=== PATIENT | female | born 1990 | race American Indian/Alaskan Native ===

== ENCOUNTER 2022-03-11 07:09 | Outpatient (CLI) | payer OTHER ==
[2022-03-11 07:41] VITALS: BP 121/77
[2022-03-11] MEDS ORDERED: LACTATED RINGERS 1,000 ML IV ONE (08:43)
--- NOTE | 2022-03-11 09:41 | Ultrasound Report ---
ULTRASOUND OBSTETRIC INDICATION / CLINICAL INFORMATION: Gest Age, placenta integrity w/ vag bleed 35.5wk. - Clinical Gestational Age (GA) in weeks, days: 35, 5 TECHNIQUE: Transabdominal. COMPARISON: None available. FINDINGS: Single intrauterine . Biparietal Diameter = 8.5 cm = 34, 2 weeks, days Head Circumference = 31.8 cm = 35, 6 weeks, days Abdominal Circumference = 30.1 cm = 34, 1 weeks, days Femur Length = 7.0 cm = 35, 5 weeks, days Average Ultrasound Age (AUA) = 35, 0 weeks, days Heart Rate: 141 beats per minute. Estimated Weight in grams (if calculated): 2511 Estimated Weight Growth Percentile (if calculated): 25% Position: cephalic. Cervix: closed. Length in cm (if measured): Not measured Placenta: anterior and free of the os. Amniotic Fluid Volume: normal Amniotic Fluid Index (BERNARD) in cm (if calculated): 7.8 cm. Maternal Adnexa: No significant abnormality. BREATHING MOVEMENT = 2 GROSS BODY MOVEMENT = 2 TONE = 2 QUALITATIVE AMNIOTIC FLUID VOLUME = 2 TOTAL BIOPHYSICAL SCORE = 8/8 IMPRESSION: 1. Single, living intrauterine with estimated sonographic age of 35, 0 weeks, days. 2. No acute sonographic abnormality. 3. Total biophysical score is 8/8. Signer Name: Arun Wang MD Signed: 03/11/2022 9:37 AM Workstation Name: [id number]
[2022-03-11 10:15] LABS: Basophils % (Auto) 0.2 % (0.0-1.8); Eosinophils % (Auto) 0.3 % (0.0-4.3); Hemoglobin 9.6 gm/dl (10.1-14.3); Lymphocytes # (Auto) 1.8 K/mm3 (1.2-5.4); Lymphocytes % (Auto) 16.6 % (13.4-35.0); Mean Corpuscular HGB Conc 32 % (30-34); Mean Corpuscular Volume 87 fl (79-97); Monocytes # (Auto) 0.5 K/mm3 (0.0-0.8); Platelet Count 216 K/mm3 (140-440); Red Blood Count 3.43 M/mm3 (3.65-5.03); Red Cell Distribution Width 16.1 % (13.2-15.2)
== END 2022-03-11 11:15 | disposition home or self-care (01) ==
LOC: APU 07:09 → TRG 07:09
PROVIDERS: ATTEND Obstetrics & Gynecology
DX: O46.93 Antepartum hemorrhage, unspecified, third trimester (principal); O99.013 Anemia complicating pregnancy, third trimester; D64.9 Anemia, unspecified; Z3A.35 35 weeks gestation of pregnancy
CPT/HCPCS: 36415; 59025; 76816; 76819; 85025; 96360; J7120; 76815

== ENCOUNTER 2022-03-21 04:11 | Outpatient (CLI) | payer OTHER ==
[2022-03-21] MEDS ORDERED: ONDANSETRON 8 MG ODT TAB PO PRN (04:55)
[2022-03-21 06:17] VITALS: BP 122/69
== END 2022-03-21 06:30 | disposition home or self-care (01) ==
LOC: TRG 04:11 → APU 04:13 → TRG 06:30
PROVIDERS: ATTEND Obstetrics & Gynecology Gynecology
DX: O26.893 Other specified pregnancy related conditions, third trimester (principal); Z3A.37 37 weeks gestation of pregnancy; R11.2 Nausea with vomiting, unspecified
CPT/HCPCS: 59025; Q0162

== ENCOUNTER 2022-03-31 07:37 | Outpatient (CLI) | payer OTHER ==
[2022-03-31 08:16] VITALS: BP 118/74
--- NOTE | 2022-03-31 10:05 | Ultrasound Report ---
ULTRASOUND OBSTETRIC WITH BIOPHYSICAL PROFILE INDICATION / CLINICAL INFORMATION: wellbeing. - Clinical Gestational Age (GA) in weeks, days: 38, 4 TECHNIQUE: Transabdominal. COMPARISON: Ultrasound dated 03/11/22 FINDINGS: Single intrauterine . BREATHING MOVEMENT = 2 GROSS BODY MOVEMENT = 2 TONE = 2 QUALITATIVE AMNIOTIC FLUID VOLUME = 2 TOTAL BIOPHYSICAL SCORE = 8/8 Biparietal Diameter = 8.9 cm = 36, 1 weeks, days Head Circumference = 32.5 cm = 36, 6 weeks, days Abdominal Circumference = 32.1 cm = 36, 0 weeks, days Femur Length = 6.9 cm = 35, 3 weeks, days Average Ultrasound Age (AUA) = 36, 1 weeks, days Heart Rate: 152 beats per minute. Estimated Weight in grams (if calculated): 2810 Estimated Weight Growth Percentile (if calculated): 10% Position: cephalic. Cervix: closed. Length in cm (if measured): Not measured Placenta: anterior and free of the os. Amniotic Fluid Volume: normal. Small amount of debris within amniotic fluid. Amniotic Fluid Index (BERNARD) in cm (if calculated): 9.4. Maternal Adnexa: No significant abnormality. IMPRESSION: 1. Single, living intrauterine with estimated sonographic age of 36, 1 weeks, days. 2. Normal biophysical score of 8/8. 3. Small amount of debris within the amniotic fluid. Normal amniotic fluid volume. Signer Name: Arun Wang MD Signed: 03/31/2022 10:00 AM Workstation Name: [id number]
== END 2022-03-31 10:38 | disposition home or self-care (01) ==
LOC: TRG 07:37 → APU 07:38 → TRG 10:38
PROVIDERS: ATTEND Obstetrics & Gynecology
DX: Z34.93 Encounter for supervision of normal pregnancy, unspecified, third trimester (principal); Z3A.38 38 weeks gestation of pregnancy
CPT/HCPCS: 76816; 76819